=== PATIENT | male | born 1995 | race Caucasian/White ===

== ENCOUNTER 2016-06-22 01:16 | Emergency (ER) | payer BC ==
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
[2016-06-22] MEDS ORDERED: IBUPROFEN 200 MG TAB PO ONE (01:57)
[2016-06-22] MEDS ORDERED: HYDROCODONE/APAP 5/325 TAB PO ONE (01:57)
[2016-06-22 02:36] VITALS: BP 122/71; PULSE 79; RESP 16; TEMP 97.9; O2SAT 97
== END 2016-06-22 02:36 | disposition home or self-care (01) ==
DX: M54.6 Pain in thoracic spine (principal); J45.909 Unspecified asthma, uncomplicated

== ENCOUNTER 2016-11-13 13:54 | Emergency (ER) | payer BC ==
[2016-11-13 14:11] VITALS: TEMP 98.4
[2016-11-13] MEDS ORDERED: LORazepam 2 MG/ML INJ IVP ONE ×2 (15:05→15:58)
[2016-11-13] MEDS ORDERED: ONDANSETRON 4 MG/2 ML VIAL IVP ONE (15:05)
[2016-11-13] MEDS ORDERED: NS 1,000 ML IV ONE ×2 (15:08→15:58)
--- NOTE | 2016-11-13 15:08 | EDPHY ---
H & P Time Seen by Provider: 11/13/16 14:57 HPI/ROS: CHIEF COMPLAINT: Nausea vomiting withdrawal HISTORY OF PRESENT ILLNESS: This 21-year-old man just got out of alcohol rehab 2 months ago. He relapsed and then called his father in a panic and has not had any alcohol for the last 4 days. He presents with decreased oral intake, multiple episodes of nausea and vomiting, feeling shaky, over the last 2 and half days. He did have an episode of 3-4 seconds of syncope today when he was lying on the couch at home. Not associated with abdominal pain diarrhea or melena. No hematemesis or coffee -ground emesis. Worse with trying to eat or drink anything. REVIEW OF SYSTEMS: Eye: no change in vision ENT: no sore throat Cardiac: No chest pain. Single episode of syncope today at home. No seizure. Pulmonary: no cough or SOB Abdomen: HPI Musculoskeletal: no back pain Skin: no rash Neuro: no headache Constitutional: no fever : no urinary symptoms A comprehensive 10 point review of systems is otherwise negative aside from elements mentioned in the history of present illness. PAST MEDICAL HISTORY: Alcoholism, multiple orthopedic injuries related to skiing including clavicle fusion and T2 through 8 fusion and tibia fracture on the right Social history: Last alcohol 4 days ago, here with father General Appearance: Alert and conversant, cooperative. Eyes: No scleral icterus. ENT, Mouth: Slightly dry mucous membranes. Respiratory: Normal respiratory effort, breath sounds equal, lungs are clear to auscultation. Cardiovascular: Regular rate and rhythm. Gastrointestinal: Abdomen is soft and non tender. Neurological: Alert and oriented x3. Normally conversant. Face symmetric, normal movement and sensation in all extremities. Moderate tremulous. Skin: Warm and dry, no rashes. Musculoskeletal: No peripheral edema and no joint swelling. Psychiatric: Not agitated. Not hallucinating. Emergency Department course/MDM: Likely primarily alcohol withdrawal with mild dehydration. Plan for IV normal saline, labs, EKG. Ativan 1mg IV, zofran 4mg IV. 1558: Still tremulous, a 2nd IV normal saline L, Ativan 1 mg IV. 1655: Results discussed, drinking oral fluids, not tremulous, offered librium and ARC but declines detox and wants to be discharged home. Smoking Status: Never smoked Constitutional: Initial Vital Signs Temperature (C) 36.9 C 11/13/16 14:08 Heart Rate 85 11/13/16 14:08 Respiratory Rate 18 11/13/16 14:08 Blood Pressure 118/68 11/13/16 14:08 O2 Sat (%) 99 11/13/16 14:08 O2 Delivery Mode Room Air Allergies/Adverse Reactions: No Known Allergies Allergy (Unverified 06/22/16 02:17) Home Medications: Medication Instructions Recorded FLUoxetine 20 mg PO 11/13/16 Hydroxyzine HCl 11/13/16 Medical Decision Making - Diagnostics EKG Interpretation: 12-lead EKG interpreted by me; official reading is in trace master. My interpretation is sinus rhythm rate 74, normal. Differential Diagnosis: Differential considered including but not limited to gastroenteritis, alcohol withdrawal, metabolic, viral or food related. Syncope unlikely to be seizure or dysrhythmia, more likely dehydration. - Data Points Laboratory Results: Laboratory Results 11/13/16 15:15 11/13/16 15:15 11/13/16 11/13/16 15:15 15:15 WBC 4.94 10^3/uL 10^3/uL (3.80-9.50) RBC 4.93 10^6/uL 10^6/uL (4.40-6.38) Hgb 16.3 g/dL g/dL (13.7-17.5) Hct 45.7 % % (40.0-51.0) MCV 92.7 fL fL (81.5-99.8) MCH 33.1 pg pg (27.9-34.1) MCHC 35.7 g/dL g/dL (32.4-36.7) RDW 11.4 % L % (11.5-15.2) Plt Count 132 10^3/uL L 10^3/uL (150-400) MPV 9.0 fL fL (8.7-11.7) Neut % (Auto) 63.8 % % (39.3-74.2) Lymph % (Auto) 26.3 % % (15.0-45.0) [place] % (Auto) 7.9 % % (4.5-13.0) Eos % (Auto) 0.6 % % (0.6-7.6) Baso % (Auto) 1.2 % % (0.3-1.7) Nucleat RBC Rel Count 0.0 % % (0.0-0.2) Absolute Neuts (auto) 3.15 10^3/uL 10^3/uL (1.70-6.50) Absolute Lymphs (auto) 1.30 10^3/uL 10^3/uL (1.00-3.00) Absolute Monos (auto) 0.39 10^3/uL 10^3/uL (0.30-0.80) Absolute Eos (auto) 0.03 10^3/uL 10^3/uL (0.03-0.40) Absolute Basos (auto) 0.06 10^3/uL 10^3/uL (0.02-0.10) Absolute Nucleated RBC 0.00 10^3/uL 10^3/uL (0-0.01) Immature Gran % 0.2 % % (0.0-1.1) Immature Gran # 0.01 10^3/uL 10^3/uL (0.00-0.10) Sodium 138 mEq/L mEq/L (134-144) Potassium 4.1 mEq/L mEq/L (3.5-5.2) Chloride 99 mEq/L mEq/L (97-110) Carbon Dioxide 21 mEq/l L mEq/l (22-31) Anion Gap 18 mEq/L H mEq/L (8-16) BUN 13 mg/dL mg/dL (7-23) Creatinine 0.8 mg/dL mg/dL (0.7-1.3) Estimated GFR > 60 Glucose 92 mg/dL mg/dL (70-100) Calcium 10.3 mg/dL mg/dL (8.5-10.4) Ethyl Alcohol < 10 mg/dL mg/dL (0-10) Medications Given: Discontinued Medications Sodium Chloride (Ns) 1,000 mls @ 0 mls/hr IV EDNOW ONE; Wide Open PRN Reason: Protocol Stop: 11/13/16 15:09 Last Admin: 11/13/16 15:36 Dose: 1,000 mls Sodium Chloride (Ns) 1,000 mls @ 0 mls/hr IV EDNOW ONE; Wide Open PRN Reason: Protocol Stop: 11/13/16 15:59 Last Admin: 11/13/16 16:18 Dose: 1,000 mls Lorazepam (Ativan Injection) 1 mg IVP EDNOW ONE Stop: 11/13/16 15:06 Last Admin: 11/13/16 15:36 Dose: 1 mg Lorazepam (Ativan Injection) 1 mg IVP EDNOW ONE Stop: 11/13/16 15:59 Last Admin: 11/13/16 16:18 Dose: 1 mg Ondansetron HCl (Zofran) 4 mg IVP EDNOW ONE Stop: 11/13/16 15:06 Last Admin: 11/13/16 15:36 Dose: 4 mg Departure - Departure Disposition: Home, Routine, Self-Care Clinical Impression: Nausea & vomiting Qualifiers: Vomiting type: unspecified Vomiting Intractability: non-intractable Qualified Code(s): R11.2 - Nausea with vomiting, unspecified Alcohol withdrawal Qualifiers: Complication of substance-induced condition: uncomplicated Qualified Code(s): F10.230 - Alcohol dependence with withdrawal, uncomplicated Condition: Good Instructions: Acute Nausea and Vomiting (ED), Alcohol Withdrawal (ED) Referrals: ANKITA AYERS [Other] - As per Instructions
[2016-11-13 15:29] LABS: % IMMATURE GRANULYOCYTES 0.2 % (0.0-1.1); ABSOLUTE IMMATURE GRANULOCYTES 0.01 10^3/uL (0.00-0.10); ADD DIFF? NO; ADD MORPH? NO; ADD SCAN? NO; ATYPICAL LYMPHOCYTE FLAG 0 (0-99); FRAGMENT RBC FLAG 0 (0-99); HEMATOCRIT 45.7 % (40.0-51.0); HEMOGLOBIN 16.3 g/dL (13.7-17.5); LEFT SHIFT FLG 10 (0-99); LIPEMIA HEMOLYSIS FLAG 90 (0-99); MEAN CELL HEMOGLOBIN 33.1 pg (27.9-34.1); MEAN CELL HEMOGLOBIN CONCENTR. 35.7 g/dL (32.4-36.7); MEAN CELL VOLUME 92.7 fL (81.5-99.8); PLATELET CLUMPS FLAG 0 (0-99); PLATELET COUNT 132 10^3/uL (150-400); RED BLOOD CELL COUNT 4.93 10^6/uL (4.40-6.38); RED CELL DISTRIBUTION WIDTH 11.4 % (11.5-15.2)
[2016-11-13 15:53] LABS: ANION GAP 18 mEq/L (8-16); CALCIUM 10.3 mg/dL (8.5-10.4); CARBON DIOXIDE 21 mEq/l (22-31); CHLORIDE 99 mEq/L (97-110); CREATININE 0.8 mg/dL (0.7-1.3); ETHANOL SERUM < 10 mg/dL (0-10); GLOMERULAR FILTRATION RATE > 60; GLUCOSE 92 mg/dL (70-100); POTASSIUM 4.1 mEq/L (3.5-5.2); SODIUM 138 mEq/L (134-144)
--- NOTE | 2016-11-13 15:53 | CPEKG ---
Heart Rate: 74 RR Interval: 811 P-R Interval: 188 QRSD Interval: 90 QT Interval: 392 QTC Interval: 435 P [place]: 37 QRS [place]: 11 T Wave [place]: 17 EKG Severity - NORMAL ECG - EKG Impression: SINUS RHYTHM Electronically Signed By: Jeromy Mcdowell 13-Nov-2016 15:57:22
[2016-11-13 16:21] VITALS: O2SAT 96
[2016-11-13 17:36] VITALS: BP 125/81; PULSE 91; RESP 18
== END 2016-11-13 17:36 | disposition home or self-care (01) ==
DX: R11.2 Nausea with vomiting, unspecified (principal); F10.230 Alcohol dependence with withdrawal, uncomplicated; E86.9 Volume depletion, unspecified
CPT/HCPCS: 96374; G0480; J2060; J2405

== ENCOUNTER 2016-11-17 20:22 | Emergency (ER) | payer BC ==
[2016-11-17 20:40] VITALS: RESP 16
--- NOTE | 2016-11-17 21:40 | EDPHY ---
H & P Stated Complaint: pt says fell in shower hitting head - +loc, lac above nose HPI/ROS: HPI CHIEF COMPLAINT: Fall in shower. HISTORY OF PRESENT ILLNESS: This patient very pleasant 21-year-old male otherwise healthy no significant medical history he presents emergency room after he slipped and fell in the shower. He had a positive LOC. He had his head on the bathtub sign. Sustained a 4 cm vertically oriented at the top of his nasal bridge in between his eyebrows. No other injuries. Denies neck pain. Does complain of frontal headache. Positive LOC. Upon arrival here in emergency room is GCS 15 alert or x4 no acute distress. Past Medical History: No significant medical history Past Surgical History: Back surgery Social History: Denies daily use drugs alcohol tobacco products. Family History: Noncontributory ROS REVIEW OF SYSTEMS: A comprehensive 10 point review of systems is otherwise negative aside from elements mentioned in the history of present illness. Exam Constitutional triage nursing summary reviewed, vital signs reviewed, awake/ alert. Eyes normal conjunctivae and sclera, EOMI, PERRLA. HENT head/neck: Vertically oriented 4 cm laceration present in between the eyebrows set this superior aspect nasal bridge. Otherwise head and neck atraumatic exam midline cervical spine pain. moist mucus membranes, no epistaxis, neck supple/ no meningismus, no raccoon eyes. Respiratory clear to auscultation bilaterally, normal breath sounds, no respiratory distress, no wheezing. Cardiovascular rate normal, regular rhythm, no murmur, no edema, distal pulses normal. Gastrointestinal soft, non-tender, no rebound, no guarding, normal bowel sounds, no distension, no pulsatile mass. Genitourinary no CVA tenderness. Musculoskeletal no midline vertebral tenderness, full range of motion, no calf swelling, no tenderness of extremities, no meningismus, good pulses, neurovascularly intact. Skin pink, warm, & dry, no rash, skin atraumatic. Neurologic awake, alert and oriented x 3, AAOx3, moves all 4 extremities equally, motor intact, sensory intact, CN II-XII intact, normal cerebellar, normal vision, normal speech. Psychiatric normal mood/affect. Heme/Lymph/Immune no lymphadenopathy. Differential Diagnosis: Includes but is not limited to in a particular order facial laceration, concussion, closed-head injury, intracranial bleed, nasal bone fracture, skull fracture Medical Decision Making: Plan for this patient CT head without contrast for trauma. Tetanus shot is up-to-date already. Over his facial laceration Re-evaluation: Laceration Repair Procedure: Verbal Consent was obtained, Under sterile conditions, The patient had lidocaine with epinephrine used approximately 4 ccs to local anesthetize the 4 cm vertically oriented Laceration. The wound was copiously irrigated with sterile fluid, the wound was explored for foreign bodies there were none visualized, the wound was explored with a sterile glove to the base. There are no deep structures involved, including no arterial injury. FIVE 6.O PROLENE interrupted Sutures were placed in this patient's laceration. He had good close approximation of the wound edges. He Tolerated this well. Patient understands have sutures removed in 7 days. Keep his wound clean dry protected and intact. Return emergency room if there is worsening symptoms including severe headache, vomiting. CT head has been reviewed no acute traumatic injury. Source: Patient - Medical/Surgical History Hx Asthma: Yes Hx Chronic Respiratory Disease: No Hx Diabetes: No Hx Cardiac Disease: No Hx Renal Disease: No Hx Cirrhosis: No Hx Alcoholism: No Hx HIV/AIDS: No Hx Splenectomy or Spleen Trauma: No Other PMH: ETOH abuse with recent rehab. FUSION T2-8/COLLAR BONE FUSION/PNEUMO/ FEMUR FX- ALL RELATED TO SKIING. ASTHMA, ADHD, anxiety/dep - Social History Smoking Status: Never smoked Constitutional: Initial Vital Signs Temperature (C) 37.2 C 11/17/16 20:37 Heart Rate 63 11/17/16 20:37 Respiratory Rate 16 11/17/16 20:37 Blood Pressure 118/88 H 11/17/16 20:37 O2 Sat (%) 100 11/17/16 20:37 O2 Delivery Mode Room Air Allergies/Adverse Reactions: No Known Allergies Allergy (Verified 11/17/16 20:40) Home Medications: Medication Instructions Recorded FLUoxetine 20 mg PO 11/13/16 Hydroxyzine HCl 11/13/16 traZODone 11/17/16 Medical Decision Making - Diagnostics Imaging Results: Imaging Impressions Head CT 11/17/16 21:31 Impression: No evidence for acute intracranial abnormality. No evidence for skull fracture. Results called and discussed with Dr. Imani Alamo at 11/17/2016 21:55. Departure - Departure Disposition: Home, Routine, Self-Care Clinical Impression: Head injury Qualifiers: Encounter type: initial encounter Qualified Code(s): S09.90XA - Unspecified injury of head, initial encounter Facial laceration Qualifiers: Encounter type: initial encounter Qualified Code(s): S01.81XA - Laceration without foreign body of other part of head, initial encounter Condition: Good Instructions: Laceration (ED), Care For Your Stitches (ED), Head Injury (ED) Additional Instructions: 1. Return emergency room to have her sutures removed in 7 days 2. Watch for signs for infection. 3. Keep your wound clean, protected, dry. Referrals: NONE *PRIMARY CARE P,. [Primary Care Provider] - As per Instructions
[2016-11-17 22:20] VITALS: BP 133/90; PULSE 80; TEMP 97.9; O2SAT 96
== END 2016-11-17 22:20 | disposition home or self-care (01) ==
PROC: 0HQ1XZZ Repair Face Skin, External Approach (ICD-10-PCS; principal; 2016-11-17)
DX: S01.81XA Laceration without foreign body of other part of head, initial encounter (principal); J45.909 Unspecified asthma, uncomplicated; W18.2XXA Fall in (into) shower or empty bathtub, initial encounter

== ENCOUNTER 2016-11-22 11:58 | Emergency (ER) | payer BC ==
[2016-11-22 12:06] VITALS: RESP 16; TEMP 98.2
--- NOTE | 2016-11-22 13:04 | CPEKG ---
Heart Rate: 69 RR Interval: 870 P-R Interval: 196 QRSD Interval: 84 QT Interval: 392 QTC Interval: 420 P [place]: 52 QRS [place]: 4 T Wave [place]: 21 EKG Severity - NORMAL ECG - EKG Impression: SINUS RHYTHM Electronically Signed By: Ángel Medina 26-Nov-2016 16:56:38
[2016-11-22] MEDS ORDERED: NS 1,000 ML IV ONE (13:20)
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
[2016-11-22 13:37] LABS: % IMMATURE GRANULYOCYTES 0.2 % (0.0-1.1); ABSOLUTE IMMATURE GRANULOCYTES 0.01 10^3/uL (0.00-0.10); ADD DIFF? NO; ADD MORPH? NO; ADD SCAN? NO; ATYPICAL LYMPHOCYTE FLAG 0 (0-99); FRAGMENT RBC FLAG 0 (0-99); HEMATOCRIT 47.1 % (40.0-51.0); HEMOGLOBIN 16.4 g/dL (13.7-17.5); LEFT SHIFT FLG 40 (0-99); LIPEMIA HEMOLYSIS FLAG 90 (0-99); MEAN CELL HEMOGLOBIN 33.1 pg (27.9-34.1); MEAN CELL HEMOGLOBIN CONCENTR. 34.8 g/dL (32.4-36.7); MEAN CELL VOLUME 95.2 fL (81.5-99.8); MEAN PLATELET VOLUME 8.8 fL (8.7-11.7); PLATELET CLUMPS FLAG 10 (0-99); PLATELET COUNT 173 10^3/uL (150-400); RED BLOOD CELL COUNT 4.95 10^6/uL (4.40-6.38); RED CELL DISTRIBUTION WIDTH 11.9 % (11.5-15.2)
[2016-11-22] MEDS ORDERED: ACETAMINOPHEN 500 MG TAB PO ONE (13:42)
[2016-11-22 13:48] LABS: ALANINE AMINOTRANSFERASE 114 IU/L (21-72); ALKALINE PHOSPHATASE 107 IU/L (38-126); ANION GAP 16 mEq/L (8-16); ASPARTATE AMINOTRANSFERASE 71 IU/L (17-59); BILIRUBIN,TOTAL 0.8 mg/dL (0.1-1.4); BILIRUBIN-CONJUGATED 0.3 mg/dL (0.0-0.5); BILIRUBIN-UNCONJUGATED 0.5 mg/dL (0.0-1.1); CALCIUM 9.8 mg/dL (8.5-10.4); CARBON DIOXIDE 22 mEq/l (22-31); CHLORIDE 102 mEq/L (97-110); CREATININE 0.8 mg/dL (0.7-1.3); ETHANOL SERUM < 10 mg/dL (0-10); GLOMERULAR FILTRATION RATE > 60; GLUCOSE 89 mg/dL (70-100); POTASSIUM 3.9 mEq/L (3.5-5.2); SODIUM 140 mEq/L (134-144); TOTAL PROTEIN 8.2 g/dL (6.3-8.2)
[2016-11-22 13:58] LABS: TROPONIN I < 0.012 ng/mL (0.000-0.034)
[2016-11-22 14:54] VITALS: BP 125/78; PULSE 70; O2SAT 95
== END 2016-11-22 15:06 | disposition home or self-care (01) ==
PROC: 0HQ1XZZ Repair Face Skin, External Approach (ICD-10-PCS; principal; 2016-11-22)
DX: S01.111A Laceration without foreign body of right eyelid and periocular area, initial encounter (principal); R55 Syncope and collapse; E86.9 Volume depletion, unspecified; J45.909 Unspecified asthma, uncomplicated; V48.5XXA Car driver injured in noncollision transport accident in traffic accident, initial encounter; Y92.410 Unspecified street and highway as the place of occurrence of the external cause; Y99.8 Other external cause status; Y93.89 Activity, other specified
CPT/HCPCS: 80305; G0480